=== PATIENT | female | born 1945 | race Two or more races ===

== ENCOUNTER 2019-05-03 06:05 | Day surgery (SDC) | payer MEDICARE, MEDICAID ==
[2019-05-03] MEDS ORDERED: ATROPINE SULFATE 1 MG/ML VIAL IM ONE (06:06)
[2019-05-03] MEDS ORDERED: ONDANSETRON 4 MG/2 ML VIAL IV ONE (06:06)
[2019-05-03] MEDS ORDERED: IRR STERIL WATER FOR IRR 1000 ML BOTTLE IR ONE (06:06)
[2019-05-03] MEDS ORDERED: KETOROLAC 0.5% OPHT DROP 3 ML BOTTLE ONE (06:14)
[2019-05-03] MEDS ORDERED: CIPROFLOXACIN 0.3% OPHT DROP 2.5 ML BOTTLE ONE (06:14)
[2019-05-03] MEDS ORDERED: CYCLOPENTOLATE 1% OPHT DROP 2 ML BOTTLE ONE (06:15)
[2019-05-03] MEDS ORDERED: PHENYLEPHRINE 2.5% OPHT DROP 2 ML BOTTLE ONE (06:15)
[2019-05-03] MEDS ORDERED: TROPICAMIDE 1% OPHT DROP 3 ML BOTTLE ONE (06:15)
[2019-05-03] MEDS ORDERED: TETRACAINE HCL 0.5% OPHT DROP 2 ML BOTTLE ONE (06:52)
[2019-05-03] MEDS ORDERED: MOXIFLOXACIN HCL 3 ML OPHT DROPS ONE (06:52)
[2019-05-03] MEDS ORDERED: LIDOCAINE-MPF 2% 5 ML VIAL ONE (06:52)
[2019-05-03] MEDS ORDERED: TIMOLOL MALEATE 0.5% OPHT DROP 5 ML BOTTLE ONE (06:52)
[2019-05-03] MEDS ORDERED: HYALURONIDASE,OVINE 200 UNITS/ML VIAL ONE (06:53)
[2019-05-03] MEDS ORDERED: HYALURONATE SODIUM 12.8 MG/0.8 ML DISP.SYRIN ONE (06:53)
[2019-05-03] MEDS ORDERED: BALANCED SALT IRRIG SOLN COMB2 15 ML IRRIG.SOLN ONE (06:53)
[2019-05-03] MEDS ORDERED: ACETYLCHOLINE CHLORIDE 1% OPHT 1 EA KIT ONE (06:53)
[2019-05-03] MEDS ORDERED: BUPIVACAINE PF 0.5% 30 ML VIAL ONE (06:53)
[2019-05-03] MEDS ORDERED: TOBRAMYCIN/DEXAMETH OPHT OINT 3.5 GM TUBE ONE (06:54)
[2019-05-03] MEDS ORDERED: BALANCED SALT IRRIG SOLN COMB1 500 ML, EPINEPHRINE-PF 1:1000 0.5 MG IO ONE ×2 (07:00)
[2019-05-03] MEDS ORDERED: FENTANYL CITRATE 100 MCG/2 ML AMPUL ONE (07:04)
[2019-05-03] MEDS ORDERED: BALANCED SALT IRRIG SOLN COMB1 500 ML ONE (07:55)
== END 2019-05-03 09:40 | disposition home or self-care (01) ==
LOC: DS 06:05
PROVIDERS: ATTEND Ophthalmology
DX: H25.012 Cortical age-related cataract, left eye (principal); I70.0 Atherosclerosis of aorta; I10 Essential (primary) hypertension; E78.00 Pure hypercholesterolemia, unspecified; K21.9 Gastro-esophageal reflux disease without esophagitis; F15.90 Other stimulant use, unspecified, uncomplicated; Z90.710 Acquired absence of both cervix and uterus; Z98.890 Other specified postprocedural states
CPT/HCPCS: 66984; 71045; 93005; J0171; J2405; J3010; J3471; J3490 ×2; J7120; J7321; V2632; A4217; A4663; J0461; J3590

== ENCOUNTER 2024-04-12 06:19 | Day surgery (SDC) | payer MEDICARE, OTHER ==
[~2024-04-12 06:19] MED LIST: CIPROFLOXACIN 0.3% OPHT DROP 2.5 ML BOTTLE ONE; CIPROFLOXACIN 0.3% OPHT DROP 2.5 ML BOTTLE RIGHTEYE SCH; CYCLOPENTOLATE 1% OPHT DROP 2 ML BOTTLE ONE; CYCLOPENTOLATE 1% OPHT DROP 2 ML BOTTLE RIGHTEYE SCH; KETOROLAC 0.5% OPHT DROP 3 ML BOTTLE ONE; KETOROLAC 0.5% OPHT DROP 3 ML BOTTLE RIGHTEYE SCH; PHENYLEPHRINE 2.5% OPHT DROP 2 ML BOTTLE ONE; PHENYLEPHRINE 2.5% OPHT DROP 2 ML BOTTLE RIGHTEYE SCH; TROPICAMIDE 1% OPHT DROP 3 ML BOTTLE ONE; TROPICAMIDE 1% OPHT DROP 3 ML BOTTLE RIGHTEYE SCH
[2024-04-12] MEDS ORDERED: LIDOCAINE-MPF 2% 5 ML VIAL ONE (06:43)
[2024-04-12] MEDS ORDERED: PHENYLEPHRINE 10% OPHT DROP 5 ML BOTTLE ONE (06:43)
[2024-04-12] MEDS ORDERED: BALANCED SALT IRRIG SOLN COMB2 15 ML IRRIG.SOLN ONE (06:43)
[2024-04-12] MEDS ORDERED: TRYPAN BLUE 0.5 ML DISP.SYRIN ONE (06:43)
[2024-04-12] MEDS ORDERED: TIMOLOL MALEATE 0.5% OPHT DROP 5 ML BOTTLE ONE (06:44)
[2024-04-12] MEDS ORDERED: TETRACAINE HCL 0.5% OPHT DROP 2 ML BOTTLE ONE (06:44)
[2024-04-12] MEDS ORDERED: ATROPINE SULFATE 1% OPHT DROP 2 ML ONE (06:44)
[2024-04-12] MEDS ORDERED: NEO/POLYMYX B/DEXAME OPHT OINT 3.5 GM TUBE ONE (06:44)
[2024-04-12] MEDS ORDERED: MOXIFLOXACIN HCL 3 ML OPHT DROPS ONE (06:44)
[2024-04-12] MEDS ORDERED: NEO/POLYMYX B/DEXAM OPHT DROP 5 ML BOTTLE ONE (06:44)
[2024-04-12] MEDS ORDERED: HYALURONATE SODIUM 12.8 MG/0.8 ML DISP.SYRIN ONE (06:45)
[2024-04-12] MEDS ORDERED: BUPIVACAINE PF 0.5% 30 ML VIAL ONE (06:45)
[2024-04-12] MEDS ORDERED: ACETYLCHOLINE CHLORIDE 1% OPHT 1 EA KIT ONE (06:45)
[2024-04-12] MEDS ORDERED: EPINEPHRINE-PF 1:1000 1 MG/ML AMPUL/VIAL ONE (06:49)
[2024-04-12] MEDS ORDERED: BALANCED SALT IRRIG SOLN COMB1 500 ML, EPINEPHRINE-PF 1:1000 0.5 MG IO ONE (07:00)
[2024-04-12] MEDS: KETOROLAC 0.5% OPHT DROP 3 ML BOTTLE RIGHTEYE SCH (07:14)
[2024-04-12] MEDS: CIPROFLOXACIN 0.3% OPHT DROP 2.5 ML BOTTLE RIGHTEYE SCH (07:16)
[2024-04-12] MEDS: TROPICAMIDE 1% OPHT DROP 3 ML BOTTLE RIGHTEYE SCH (07:17)
[2024-04-12] MEDS: CYCLOPENTOLATE 1% OPHT DROP 2 ML BOTTLE RIGHTEYE SCH (07:18)
[2024-04-12] MEDS: PHENYLEPHRINE 2.5% OPHT DROP 2 ML BOTTLE RIGHTEYE SCH (07:19)
[2024-04-12] MEDS ORDERED: FENTANYL CITRATE 100 MCG/2 ML AMPUL ONE (07:50)
[2024-04-12] MEDS ORDERED: BALANCED SALT IRRIG SOLN COMB1 500 ML ONE ×2 (08:42→08:56)
[2024-04-12 10:20] VITALS: TEMP 97.8
== END 2024-04-12 10:30 | disposition home or self-care (01) ==
LOC: DS 06:19
PROVIDERS: ATTEND Ophthalmology
DX: H25.89 Other age-related cataract (principal); I10 Essential (primary) hypertension; E78.5 Hyperlipidemia, unspecified; Z79.899 Other long term (current) drug therapy; Z98.890 Other specified postprocedural states
CPT/HCPCS: A4663; J0171; J3010; J3490; J3590; J7120; J7321; Q9968; V2632